=== PATIENT | female | born 1940 | race African-American/Black ===

== ENCOUNTER 2019-12-28 12:17 | Outpatient (CLI) | payer BC, MEDICARE ==
--- NOTE | 2019-12-28 13:07 | RAD ---
XR Knee Rt 3 View HISTORY: Acute pain of the right knee FINDINGS: No fracture or dislocation is identified.
== END 2019-12-28 12:18 | disposition home or self-care (01) ==
LOC: BICRAD 12:17
PROVIDERS: ATTEND Family Medicine
DX: M25.561 Pain in right knee (principal)